=== PATIENT | female | born 1975 | race Two or more races ===

== ENCOUNTER 2024-10-25 12:03 | Emergency (ER) | payer OTHER ==
[~2024-10-25] VITALS: Ht 165.1 cm; Wt 72.6 kg
[2024-10-25] MEDS ORDERED: KETOROLAC TROMETHAMINE 15 MG/ML VIAL ONE (12:32)
[2024-10-25 12:35] LABS: APPEARANCE,URINE CLEAR (CLEAR); BLOOD, URINE Trace-lysed Ery/uL (NEGATIVE); LEUKOCYTE ESTERASE ,URINE Negative (NEGATIVE); UGLUCOSE Negative (NEGATIVE)
[2024-10-25] MEDS: KETOROLAC TROMETHAMINE 15 MG/ML VIAL IV ONE (12:35)
[2024-10-25 12:40] LABS: PLATELET COUNT (AUTO) 273 K/uL (150-450); RED BLOOD CELL COUNT(AUTO) 4.66 MIL/uL (4.0-5.2); RED CELL DISTRIBUTION WIDTH 14.0 % (11.5-15.0); WHITE BLOOD COUNT (AUTO) 5.6 K/uL (4.3-11.0)
[2024-10-25 12:40] LABS: NITRITE, URINE NEGATIVE (NEGATIVE); PREGNANCY TEST URINE QUAL NEGATIVE (NEGATIVE)
[2024-10-25 12:46] LABS: CALCIUM, SERUM 9.1 mg/dL (8.5-10.1); CREATININE 0.8 mg/dL (0.6-1.3); SODIUM SERUM 138.0 mmol/L (136-145); UREA NITROGEN, BLOOD 13.0 mg/dL (7-18)
[2024-10-25 12:47] LABS: ADD URINE CULTURE NO; SQUAMOUS EPITHELIAL CELL,UR Moderate /HPF (None Seen)
[2024-10-25] MEDS ORDERED: ACET-2605 PO (13:27)
[2024-10-25] MEDS ORDERED: NAPR-1009 PO (13:27)
[2024-10-25] MEDS ORDERED: CYCL10TA9 PO (13:27)
[2024-10-25 13:31] VITALS: BP 128/78; TEMP 98.5; O2SAT 99
== END 2024-10-25 13:32 | disposition home or self-care (01) ==
LOC: ER 12:10
DX: M54.50 Low back pain, unspecified (principal); R35.0 Frequency of micturition; Z87.440 Personal history of urinary (tract) infections
CPT/HCPCS: 99283; 96372; 85025; 80048; 84703; 81001; 36415; J1885